=== PATIENT | male | born 1985 | race Caucasian/White ===

== ENCOUNTER 2021-05-10 09:26 | Observation (INO) | payer BC, SELFPAY ==
[2021-05-10] VITALS (7 sets, daily range): BP systolic 109–144; BP diastolic 61–90; PULSE 96–107; RESP 14–24; TEMP 36.1–36.9; O2SAT 95–98; BMI 26.8
--- NOTE | ~2021-05-10 | XR_ITS ---
EXAMINATION: XR chest 1V portable DATE: 05/10/2021 11:46 INDICATION: Shortness of breath. COVID-19 pneumonia. TECHNIQUE: A single frontal view of the chest was obtained. COMPARISON: None. FINDINGS: There are patchy airspace opacities in all lung zones bilaterally. No pleural effusion or p neumothorax. The heart size is normal. IMPRESSION: 1. Diffuse lung disease, consistent with COVID-19 pneumonia. Reviewed, dictated and finalized at location A. RAISER
--- NOTE | 2021-05-10 12:33 | ED.SOB ---
HPI - SOB/Dyspnea General Chief Complaint: Shortness of Breath/Dyspnea Stated Complaint: shortness of breath, covid + Time Seen by Provider: 05/10/21 12:32 Source: patient Mode of arrival: ambulatory Limitations: no limitations History of Present Illness HPI Narrative: 35 years old white male presented to the ED with shortness of breath, developed Covid symptoms 10 days ago, this past 1 to 2 days later. Patient complaining of shortness of breath at rest get worse on light exertion. Patient is healthy otherwise. Patient report that he is not vaccinated for COVID for personal reasons which changed. Related Data Home Medications Medication Instructions Recorded Confirmed albuterol sulfate 90 mcg/actuation 1 puff INHALATION Q4H PRN 05/07/21 05/07/21 aerosol inhaler Allergies Allergy/AdvReac Type Severity Reaction Status Date / Time walnut Allergy Unknown Unknown Verified 05/07/21 12:23 watermelon Allergy Unknown Unknown Verified 05/07/21 12:23 Review of Systems Review of Systems: CONSTITUTIONAL: Denies fever, chills, or sweats. EYES: Denies visual changes, redness, or discharge. ENT: Denies rhinorrhea, congestion, sore throat, or otalgia. CARDIOVASCULAR: Denies chest pain, palpitations, or edema. RESPIRATORY: Complaining of shortness of breath GASTROINTESTINAL: Denies abdominal pain, nausea, vomiting, or diarrhea. GENITOURINARY: Denies dysuria or hematuria. SKIN: Denies rash or itching. MUSCULOSKELETAL: Denies back pain, joint pain, or myalgia. NEUROLOGIC: Denies headache, numbness, or weakness. PSYCHIATRIC: Denies anxiety or depression. [facility] Past Medical History Medical History Acute sinusitis, unspecified BMI 27.0-27.9,adult (~05/2020) Body mass index [BMI] 26.0-26.9, adult (05/25/17) Complex tear of medial meniscus of right knee as current injury Dietary counseling and surveillance (01/17/19) Elevated bilirubin Encounter for other specified surgical aftercare Right medial knee pain Routine physical examination Screening for diabetes mellitus Screening for thyroid disorder Screening, lipid Tobacco use Family History Family History Grandparent Diabetes mellitus Father No problems noted. Mother Breast cancer Sibling No problems noted. 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 Gender identity (if verbalized by the patient): Male Sexual Orientation (if Verbalized by the Patient): Straight or Heterosexual Spiritual care concerns: No Agree to blood products: Yes Exam Narrative: General appearance: Well-developed, well-nourished Skin: Normal color Head: Normocephalic, nontraumatic Eyes: Clear conjunctiva ENT: Oropharynx normal, ears normal, nose normal Neck: Supple, nontender Chest and respiratory: Airway patent, mild respiratory distress, slight diminution of air entry bilaterally, scattered rales and rhonchi Heart: Regular rate/rhythm Abdomen: Soft, nontender, no organomegaly, quiet bowel sounds Vascular: Normal peripheral pulses, normal capillary refill. Musculoskeletal: Normal range of motion, nontender back Neurologic: Alert and oriented ?3, MARKETING PRODUCER is normal as tested, no gross motor deficit Course Course Emergency Course: Stable Vital Signs Vital signs: Vital Signs Temperature 36.1 C L 05/10/21 09:38 Pulse Rate 107 H 05/10/21 09:38 Respiratory Rate
[2021-05-10 12:50] LABS: Alveolar/Arterial O2 Gradient 58.7 mmHg; Device ROOM AIR; Fractional Inspired Oxygen 21 %; HCO3 ABG 20.2 mEq/l (22.0-26.0); Modified Allen's Test Pass; Oxygen Content ABG 18.9 %vol (16.0-22.0); Oxyhemoglobin 90.6 % THb (90.0-100.0); PCO2 ABG 28.2 mmHg (35.0-45.0); PO2 ABG 57.3 mmHg (80.0-100.0); PO2 FiO2 Ratio Arterial Blood 2.73 %; Site Drawn RIGHT RADIAL; Total Hemoglobin 14.9 g/dL (12.0-18.0); pH ABG 7.472 (7.350-7.450)
[2021-05-10 14:13] LABS: Basophils Percent Auto 0.1 % (0.2-1.2); Hematocrit 44.8 % (42.0-52.0); Hemoglobin 15.1 g/dL (14.0-18.0); Immature Granulocyte Absolute 0.04 K/mm3 (0.00-0.031); Immature Granulocyte Percent A 0.5 % (0-0.5); Lymphocytes Absolute Auto 1.27 K/mm3 (0.9-3.2); Lymphocytes Percent Auto 15.1 % (18.3-44.2); Mean Corpuscular HGB Conc 33.7 g/dl (32-36); Mean Corpuscular Hemoglobin 28.6 pg (26-34); Mean Corpuscular Volume 84.8 fl (80-100); Mean Platelet Volume 9.9 fl (7.4-10.4); Monocytes Absolute Auto 0.2 K/mm3 (0.1-0.6); Monocytes Percent Auto 1.8 % (2.6-8.5); Neutrophils Percent Auto 82.5 % (45.5-73.1); Platelet Count Result 191 k/mm3 (150-375); Red Blood Count 5.28 M/mm3 (4.6-6.20); Red Cell Distribution Width 12.7 % (11.5-14.5); White Blood Count 8.4 K/mm3 (4.5-10.0)
[2021-05-10] MEDS: DEXAMETHASONE 2 MG TABLET 6 MG PO (14:18)
[2021-05-10 14:23] LABS: Alanine Aminotransferase 42 U/L (4-50); Albumin Level 4.5 g/dL (3.5-5.1); Alkaline Phosphatase 54 U/L (38-126); Anion Gap 13 mmol/L (8-16); Aspartate Amino Transferase 74 U/L (17-59); Bilirubin,Total 0.9 mg/dL (0.2-1.3); Blood Urea Nitrogen 14 mg/dL (9-20); Calcium 8.9 mg/dL (8.4-10.2); Carbon Dioxide 24 mmol/L (22-30); Chloride 101 mmol/L (98-107); Estimated CRCL calculation 123 ml/min; Estimated Glomerular Filt Rate > 60; Glucose 101 mg/dL (65-110); Potassium 3.8 mmol/L (3.4-5.0); Sodium 138 mmol/L (137-145)
[2021-05-10 14:24] LABS: INR 1.1; Prothrombin Time 14.1 Seconds (11.1-14.7)
--- NOTE | 2021-05-10 14:24 | PM.IMHP ---
H&P: HPI History of Present Illness Date/Time: 05/10/21 14:24 Chief Complaint: sob Narrative: Pt is a 35-year-old male who tested positive for COVID on the who presented emergency room for shortness of breath. Patient states that he has had a cough and shortness of breath for 10 days which keeps getting worse. He said that he feels like he can not breathe which is why he came into the emergency room. He has been having fevers up to 102, diarrhea, and headaches. Has been having a dry cough and when he coughs a lot or takes big breaths he has a stabbing chest pain which goes away once he calms down. He does not like to take deep breaths because it hurts. He has not had the COVID vaccine but did have COVID in the past last year. He has no history of blood clots and is relatively healthy. He said he took albuterol from his primary care physician which helps a little bit so he would like to continue with that. Review of Systems Review of Systems: All systems reviewed & are unremarkable except as noted in HPI and below PMFSH Past Medical History Medical History Acute sinusitis, unspecified BMI 27.0-27.9,adult (~05/2020) Body mass index [BMI] 26.0-26.9, adult (05/25/17) Complex tear of medial meniscus of right knee as current injury Dietary counseling and surveillance (01/17/19) Elevated bilirubin Encounter for other specified surgical aftercare Right medial knee pain Routine physical examination Screening for diabetes mellitus Screening for thyroid disorder Screening, lipid Tobacco use Surgical History Surgical History (Updated 05/10/21 @ 14:26 by Karina Ojeda PA-C) History of appendectomy History of spinal surgery To remove a benign cyst Family History Family History Grandparent Diabetes mellitus Father No problems noted. Mother Breast cancer Sibling No problems noted. Social History Social History (Updated 05/10/21 @ 14:27 by Karina Ojeda PA-C) Social History: Patient quit smoking 3 years ago but before that smoked 1 pack per day. He drinks about 4-5 beers a week. He does not do drugs. He would like to be a full code. He would elect his , may again, as his surrogate decision maker if needed. 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 Gender identity (if verbalized by the patient): Male Sexual Orientation (if Verbalized by the Patient): Straight or Heterosexual Spiritual care concerns: No Agree to blood products: Yes Meds Home Medications and Allergies Home Medications Medication Instructions Recorded Confirmed Type albuterol sulfate 90 mcg/actuation 1 puff INHALATION Q4H PRN 05/07/21 05/07/21 History aerosol inhaler azithromycin 250 mg tablet See Rx Instructions PO .COMPLEX #6 05/07/21 05/07/21 Rx tablet Allergies Allergy/AdvReac Type Severity Reaction Status Date / Time walnut Allergy Unknown Unknown Verified 05/07/21 12:23 watermelon Allergy Unknown Unknown Verified 05/07/21 12:23 Vital Signs Vital Signs - 24 hr 05/10/21 09:38 05/10/21 11:50 05/10/21 12:37 Temperature 97.0 F L Pulse Rate 107 H 103 H 96 Respiratory Rate 20 14 24 H Blood Pressure 117/67 109/61 133/84 Pulse Oximetry 98 98 98 05/10/21 14:20 Temperature Pulse Rate 98 Respiratory Rate 20 Blood Pressure 121/78 Pulse Oximetry 97 Exam Narrative: General:Well developed well nourished patient HEENT: Normocephalic, atraumatic, PERRL, Sclerae anicteric, oral mucosa moist. Neck: Supple Resp: Relatively clear with no significant wheezing or rhonchi. Cough on exam Heart: RRR with no murmurs Abd: Soft, nontender. No pain to palpation. Positive bowel sounds Skin: Warm and dry Extre
[2021-05-10 14:26] LABS: D Dimer 0.51 ug/mL (<0.48)
[2021-05-10] MEDS: ENOXAPARIN 40 MG/0.4 ML SYRINGE SUB-Q (14:38)
[2021-05-10] MEDS: REMDESIVIR 200 MG/NS 250 ML 200 MG/250 ML BAG 250 MG IVPB (14:39)
--- NOTE | 2021-05-10 17:24 | PC.NURSE ---
This patient, Todd Vizcarra, was admitted to [facility] Surg Room 300-01. Patient/family oriented to hospital policies and general routines including ID bracelet, bed and alarms, visiting hours, pain management, procedures, bathroom and other care routines, personal items, smoking policy, room service/diet, and visiting hours. Information on how to activate the Rapid Response Team has been discussed. Patient/Family are encouraged to report perceived risks to care and to ask questions if they do not understand what they are told or what they should do.
[2021-05-10] MEDS: ONDANSETRON HCL ODT 4 MG TABLET PO (17:38)
[2021-05-10] MEDS: guaiFENesin 12 HR 600 MG TABCR PO (21:03)
[2021-05-11] VITALS: BP 113/74; PULSE 92; RESP 16; TEMP 37.2; O2SAT 95
[2021-05-11 04:00] VITALS: BP 122/71; PULSE 84; RESP 16; TEMP 36.3; O2SAT 95
[2021-05-11 07:06] LABS: Basophils Percent Auto 0.2 % (0.2-1.2); Hematocrit 41.7 % (42.0-52.0); Immature Granulocyte Absolute 0.03 K/mm3 (0.00-0.031); Immature Granulocyte Percent A 0.6 % (0-0.5); Lymphocytes Absolute Auto 0.92 K/mm3 (0.9-3.2); Lymphocytes Percent Auto 17.3 % (18.3-44.2); Mean Corpuscular HGB Conc 33.6 g/dl (32-36); Mean Corpuscular Hemoglobin 28.5 pg (26-34); Mean Corpuscular Volume 84.9 fl (80-100); Mean Platelet Volume 9.9 fl (7.4-10.4); Monocytes Absolute Auto 0.2 K/mm3 (0.1-0.6); Monocytes Percent Auto 4.3 % (2.6-8.5); Neutrophils Absolute Auto 4.1 K/mm3 (1.3-6.7); Neutrophils Percent Auto 77.6 % (45.5-73.1); Platelet Count Result 241 k/mm3 (150-375); Red Blood Count 4.91 M/mm3 (4.6-6.20); Red Cell Distribution Width 12.6 % (11.5-14.5); White Blood Count 5.3 K/mm3 (4.5-10.0)
[2021-05-11 07:15] LABS: INR 1.2; Prothrombin Time 14.6 Seconds (11.1-14.7)
[2021-05-11 07:18] LABS: D Dimer 0.58 ug/mL (<0.48)
[2021-05-11 07:33] LABS: Alanine Aminotransferase 49 U/L (4-50); Albumin Level 4.1 g/dL (3.5-5.1); Alkaline Phosphatase 51 U/L (38-126); Anion Gap 12 mmol/L (8-16); Aspartate Amino Transferase 68 U/L (17-59); Bilirubin,Total 0.7 mg/dL (0.2-1.3); Blood Urea Nitrogen 16 mg/dL (9-20); CRP 8.3 mg/dL (<1.0); Carbon Dioxide 22 mmol/L (22-30); Chloride 104 mmol/L (98-107); Estimated CRCL calculation 138 ml/min; Estimated Glomerular Filt Rate > 60; Glucose 123 mg/dL (65-110); Magnesium 2.4 mg/dL (1.6-2.3); Potassium 4.3 mmol/L (3.4-5.0); Sodium 138 mmol/L (137-145)
[2021-05-11 08:00] VITALS: BP 121/74; PULSE 92; RESP 20; TEMP 36.4; O2SAT 94
[2021-05-11] MEDS: REMDESIVIR 100 MG/NS 250 ML 100 MG/250 ML BAG 250 MG IVPB (11:16)
[2021-05-11] MEDS: ENOXAPARIN 40 MG/0.4 ML SYRINGE SUB-Q (11:17)
[2021-05-11] MEDS: DEXAMETHASONE 2 MG TABLET 6 MG PO (11:17)
[2021-05-11 12:00] VITALS: BP 130/75; PULSE 99; RESP 18; TEMP 36.7; O2SAT 91
--- NOTE | 2021-05-11 12:37 | PM.DS ---
DS: Admitting Diagnosis Discharge Date 05/11/21 Admitting Diagnosis COVID 19 pneumonia DS: Discharge Diagnosis Discharge Diagnosis (1) Transaminitis: Code(s): R74.01 - Elevation of levels of liver transaminase levels Status: Acute (2) Pneumonia due to COVID-19 virus: Code(s): U07.1 - COVID-19; J12.82 - Pneumonia due to coronavirus disease 2019 Status: Acute DS: Summary Hospital Course Reason for hospitalization: covid 19 pneumonia Hospital Course: Patient is a 35-year-old with past medical history of COVID-19 last year who presents to ED with complaints of dyspnea. He was diagnosed with COVID-19 on 05/01/2021 with shortness of breath. His admitted has his significant chest pain and dyspnea. He is unvaccinated for COVID-19. Over next 24 hours he was watched, breathing comfortably on room air. Road test was done showing oxygen saturation greater than 95%. Patient states he has some chest pain associated with coughing, will give Mucinex DM prescription. He has no history of asthma does not require any bronchodilators. He has been advised to continue quarantine for 2 weeks from diagnosis. He has been advised to use Tylenol for fevers. Patient to be discharged home to follow-up with PCP in a week. Patient's vitals stable, labs stable, patient is stable for discharge. Patient understands and agrees with plan. Status at Discharge Cognitive/behavioral status at discharge: At baseline Functional status at discharge: independent ambulation Overall status at discharge: patient is back to baseline Time Spent with Patient Time attestation: Total time spent providing and/or coordinating discharge services: 35 Time spent: Greater than 30 minutes Exam Narrative: - GENERAL: Pleasant male No acute distress. Well-nourished. - EYES: EOMI. Anicteric. - HENT: Moist mucous membranes. - LUNGS: Coarse lung sounds, nonlabored respirations. - CARDIOVASCULAR: Regular rate and rhythm. No murmur. No JVD. - ABDOMEN: Soft, non-tender and non-distended. No palpable masses. - EXTREMITIES: No edema. Peripheral pulses 2+. Non-tender. - NEUROLOGIC: No focal neurological deficits. CN II-XII grossly intact. - PSYCHIATRIC: Awake, Alert and oriented x 3. Appropriate mood and affect. - SKIN: No rashes or lesions. Warm. - LYMPH: No cervical lymphadenopathy. DS: Data Data Completed and Pending Labs on day of discharge: Labs from last 24 hours 05/11/21 05/11/21 05/11/21 06:19 06:19 06:19 WBC RBC Hgb Hct MCV MCH MCHC RDW Plt Count MPV Immature Gran % (Auto) Neut % (Auto) Lymph % (Auto) [place] % (Auto) Eos % (Auto) Baso % (Auto) Lymph # (Auto) [place] # (Auto) Eos # (Auto) Baso # (Auto) Abs Immat Gran (auto) Absolute Neuts (auto) Absolute Nucleated RBC Nucleated RBC % PT 14.6 INR 1.2 D-Dimer 0.58 H Puncture Site ABG pH ABG pCO2 ABG pO2 ABG PO2/FiO2 Ratio ABG HCO3 ABG O2 Saturation ABG O2 Content ABG Base Excess A-a Gradient Oxyhemoglobin Total Hemoglobin O2 Delivery Device O2 Liters/Min FiO2 Sodium 138 Potassium 4.3 Chloride 104 Carbon Dioxide 22 Anion Gap 12 BUN 16 Creatinine 0.80 Estim Creat Clear Calc 138 Estimated GFR > 60 Glucose 123 H Calcium 9.0 Magnesium 2.4 H Ferritin 1870.00 H Total Bilirubin 0.7 Direct Bilirubin 0.0 AST 68 H ALT 49 Alkaline Phosphatase 51 C-Reactive Protein 8.3 H Total Protein 7.0 Albumin 4.1 05/11/21 05/10/21 05/10/21 06:19 14:02 14:02 WBC 5.3 RBC 4.91 Hgb 14.0 Hct 41.7 L MCV 84.9 MCH 28.5 MCHC 33.6 RDW 12.6 Plt Count 241 MPV 9.9 Immature Gran % (Auto) 0.6 H Neut % (Auto) 77.6 H Lymph % (Auto) 17.3 L [place] % (Auto) 4.3 Eos % (Auto) 0.0 Baso % (Auto) 0.2 Lymph # (Auto) 0.92 [place] # (Auto) 0.2 Eos # (Auto) 0.0 Baso
== END 2021-05-11 14:00 | disposition home or self-care (01) ==
LOC: ANHED 13:19 → ANH3MEDSUR 05-11 12:01
PROVIDERS: Physician Assistant; Admitting Provider Internal Medicine; Emergency Provider Emergency Medicine; PCP Family Medicine; Visit Provider Student in an Organized Health Care Education/Training Program
DX: U07.1 COVID-19 (principal); J12.82 Pneumonia due to coronavirus disease 2019; J96.01 Acute respiratory failure with hypoxia; R74.01 Elevation of levels of liver transaminase levels; Z90.49 Acquired absence of other specified parts of digestive tract; Z87.891 Personal history of nicotine dependence
CPT/HCPCS: 36415; 36600; 71045; 80048; 80053; 80076; 82728; 82805; 83735; 85025; 85380; 85610; 86140; 96365; 96372; 96375; 99291; A9270; G0378; J1650; J8540

== ENCOUNTER → 2021-05-27 07:19 | Outpatient (CLI) | payer BC, SELFPAY ==
--- NOTE | ~2021-05-27 | XR_ITS ---
XR chest 2V DATE: 05/27/2021 07:53 INDICATION: Covid 19 pneumonia TECHNIQUE: 2 views, PA and lateral projections COMPARISON: 05/10/2021 portable AP chest FINDINGS: There are rather diffuse scattered patchy reticular discoid appearing infiltrates, moderate ly improved since 05/10/2021, likely due to improvement but incomplete resolution of Covid pneumonia. Normal heart size. No pulmonary vascular congestion or pleural effusion or pneumothorax. IMPRESSION: Persistent but diminished infiltrate since 05/10/2021 Reviewed, dictated and finalized at location A. T INDUSTRIAL SUPERVISOR
== END ==
PROVIDERS: PCP Family Medicine; Visit Provider Nurse Practitioner Family
DX: U07.1 COVID-19 (principal); J12.82 Pneumonia due to coronavirus disease 2019
CPT/HCPCS: 71046